=== PATIENT | male | born 1965 | race Caucasian/White ===

== ENCOUNTER 2018-07-01 14:37 | Inpatient (IN) ==
[2018-07-01 16:26] LABS: BASO# 0.03 X1000 (0.0-0.2); BASO% 0.2 % (0.0-0.8); HEMOGLOBIN 16.1 g/dL (14.0-18.0); IMM GRAN# 0.04 X1000 (0.0-0.04); IMM GRAN% 0.3 % (0.0-0.5); LYMPH% 7.8 % (20.5-51.1); MCHC 33.5 g/dL (33-37); MCV 89.6 FL (81-99); MONO% 8.6 % (1.7-9.3); MPV 10.4 FL (7.4-10.4); NEUT# 10.62 X1000 (1.4-6.5); NEUT% 83.1 % (42.2-75.2); PLT 277 X1000 (130-400); RBC 5.36 XMIL (4.7-6.1); WBC 12.79 X1000 (4.8-10.8)
[2018-07-01 16:26] LABS: URINE SOURCE CLEAN CATCH
[2018-07-01] MEDS ORDERED: ATIVAN ONE ×2 (16:30→16:33)
[2018-07-01] MEDS ORDERED: M.V.I.-12 10 ML, FOLIC ACID 1 MG, MAGNESIUM SULFATE 1 GM, THIAMINE 100 MG in NS 1,000 ML IV ONE (16:33)
[2018-07-01 16:34] LABS: BILIRUBIN URINE SMALL (NEGATIVE); BLOOD URINE MODERATE (NEGATIVE); COLOR ORANGE; GLUCOSE URINE 300 mg/dL (NEGATIVE); KETONE URINE 10 mg/dL (NEGATIVE); LEUKOCYTES URINE NEGATIVE (NEGATIVE); NITRITE URINE NEGATIVE (NEGATIVE); PROTEIN URINE 600 mg/dL (NEGATIVE); TURBIDITY URINE TURBID (CLEAR); UR EPITHELIAL CELLS <10 /HPF (<10); URINE BACTERIA NEGATIVE /HPF; URINE RBC <10 /HPF (<10); URINE WBC <10 /HPF (<10); UROBILINOGEN URINE 3 mg/dL (NORMAL)
[2018-07-01] MEDS ORDERED: ATIVAN IV ONE (16:34)
[2018-07-01] MEDS ORDERED: NS 1,000 ML IV ONE ×2 (16:36→20:03)
[2018-07-01 16:42] LABS: ALB/GLOB RATIO 1.5; ALBUMIN 4.8 g/dL (3.5-5.0); CALCIUM 10.4 mg/dL (8.8-10.2); CREATININE 1.6 mg/dL (0.7-1.2); POTASSIUM 4.7 mmol/L (3.5-5.1); TOTAL BILIRUBIN 1.28 mg/dL (0.20-1.00); TOTAL PROTEIN 7.9 g/dL (6.3-8.3)
[2018-07-01 17:01] LABS: MAGNESIUM 1.3 mg/dL (1.5-2.7)
[2018-07-01 17:19] LABS: UR AMPHETAMINES QUAL NONE DETECTED (NONE DETECT); UR BARBITUATES QUAL NONE DETECTED (NONE DETECT); UR BENZODIAZEPIN QUAL NONE DETECTED (NONE DETECT); UR CANNABINOIDS QUAL PRESUMPTIVE POSITIVE (NONE DETECT); UR COCAINE QUAL NONE DETECTED (NONE DETECT); UR METHADONE QUAL NONE DETECTED (NONE DETECT); UR OPIATES QUAL NONE DETECTED (NONE DETECT); UR OXYCODONE QUAL NONE DETECTED (NONE DETECT); UR PCP QUAL NONE DETECTED (NONE DETECT)
--- NOTE | 2018-07-01 18:32 | Diag Imaging Result Doc PS360 ---
EXAM: CT ABDOMEN/PELVIS W/O CONTRAST INDICATION: RUQ PAIN + RLQ POINT TENDERNESS W/ NEUTROPHILIC TECHNIQUE: This exam was performed using automated exposure control, adjustment of mA or kV according to patient size, and/or use of iterative reconstruction technique. COMPARISON: 03/04/2018 FINDINGS: There is moderate to severe hepatic steatosis. The gallbladder is hyperdense suggesting internal sludge. There is no pericholecystic inflammatory change. There is no biliary dilatation. The spleen, pancreas, and adrenal glands are unremarkable. The kidneys are unremarkable. The urinary bladder is partially distended and is unremarkable, otherwise. There is uncomplicated diverticulosis coli. The appendix is normal. The remainder of the GI tract is grossly unremarkable. The bony structures are intact. There is degenerative disc disease at L3-4 and L5-S1. IMPRESSION: 1.Hepatic steatosis. 2.Vague hyperdense sludge in the gallbladder lumen but no pericholecystic inflammatory change. 3.Other incidental/nonacute findings detailed above. Electronically signed by Evan Murry 07/01/2018 6:29 PM
[2018-07-01] MEDS ORDERED: MAGNESIUM SULFATE 2 GM/S.W.I. 2 GM/50 ML IVPB IV ONE (18:54)
--- NOTE | 2018-07-01 19:15 | PROVIDER DOCUMENTATION ---
This chart was entered by Marla Caraballo Scribe, acting as scribe for Tameka Sullivan MD. [id number] Abuse/Overdose - General Chief Complaint: Alcohol Withdrawal Stated Complaint: ALCOHOL WITHDRAWALS Time Seen by Provider: 07/01/18 16:24 Source: patient Allergies/Adverse Reactions: Allergies Allergy/AdvReac Type Severity Reaction Status Date / Time Penicillins Allergy Unknown Unknown Verified 07/01/18 15:50 Home Medications: Home Medication List Medication Instructions Recorded Confirmed Last Taken Type Clonidine [Catapres] 0.3 mg PO TID 06/07/13 03/04/18 03/03/18 History Citalopram [Celexa] 20 mg PO DAILY 04/13/15 09/14/15 09/13/15 History Lisinopril 20 mg PO DAILY 04/13/15 09/14/15 09/13/15 History Tamsulosin [Flomax] 0.4 mg PO QPM 04/13/15 09/14/15 09/13/15 History Folic Acid 1 mg PO DAILY #90 tablet 09/17/15 Unknown Rx Omeprazole [Prilosec] 40 mg PO DAILY #90 capsule. 09/17/15 Unknown Rx - History of Present Illness-Drug/Alcohol Nature of Presenting Problem: Pt is 52/M presenting to ED w/ ETOH withdrawals, he sts that for the last 3-5 yrs he has drank 1/2 gallon of vodka every other day. He wants to detox and become sober. He is diaphoretic and shaky in the waiting room. Pt is seeking help. This episode of drinking or use began:: other (pt has not had an alcoholic drink in 2 days.) Severity: reports: moderate Situational problems related to:: reports: N/A Psychiatric Complaints: reports: hallucinating Associated Symptoms: reports: diaphoresis, vomiting. denies: fever/chills Any injuries associated with this episode of intoxication?: No Similar Symptoms Previously?: No Recently seen or treated by another doctor?: No - Detox/Hospitalizations Previous detox/rehab admissions?: No Currently enrolled in a Methadone Program?: No Review of Systems - Adult - REVIEW OF SYSTEMS - ADULT Constitutional: reports: no symptoms reported. denies: chills, fever Eyes: reports: no symptoms reported Ears, Nose, Mouth & Throat: reports: no symptoms reported Cardiovascular: reports: no symptoms reported Respiratory: reports: no symptoms reported Gastrointestinal: reports: nausea, vomiting. denies: abdominal pain, diarrhea Genitourinary: reports: no symptoms reported Musculoskeletal: reports: no symptoms reported Integumentary: reports: no symptoms reported Neurological: reports: no symptoms reported. denies: dizziness/vertigo, headache/migraines Psychiatric: reports: no symptoms reported Endocrine: reports: no symptoms reported Hematologic/Lymphatic: reports: no symptoms reported Allergic/Immunologic: reports: no symptoms reported All Other Systems: Reviewed and Negative Past History - Adult - PAST MEDICAL HISTORY-ADULT Review of Records: reports: Old Records Reviewed, Nursing Assessment Review, Medications Reviewed, Social history reviewed & non-contributory. Major Childhood Illnesses: reports: denies history Cardiovascular: reports: HTN, hyperlipidemia Respiratory: reports: denies history Gastrointestinal: reports: denies history Obstetrical/Gynecological: reports: denies history Genitourinary: reports: denies history Musculoskeletal: reports: denies history Neurological: reports: denies history Endocrine/Immune: reports: denies history Other Conditions: reports: denies history - PRIOR SURGERIES/PROCEDURES Surgical/Procedure History: reports: tonsillectomy, orthopedic (extremity) - IMMUNIZATION STATUS Childhood Immunizations: See Nurse Assessment Flu Vaccine: See Nurse Assessment - FAMILY HISTORY Family History: reviewed, not pertinent - SOCIAL HISTORY Substance Use: alcohol, marijuana Alcohol Use Frequency: every day Number of drinks per typical drinking period:: 11-15 drinks Physical Exam-General - PHYSICAL EXAM-ADULT Initial Vital Signs Reviewed: Yes - CONSTITUTIONAL General Appearance: appears well, alert, moderate distress, other (pt is jaundice and diaphoretic) - EYES Eyes: PERRL/EOMI, pink conjunctivae - HEAD, EARS, NOSE, MOUTH & THROAT HENMT: normocephalic/atraumatic, moist mucous membranes, normal ENT inspection, TMs normal, pharynx normal - NECK Neck: non-tender, full range of motion, supple, normal inspection - RESPIRATORY Respiratory: lungs clear - CARDIOVASCULAR Cardiovascular: normal peripheral pulses, regular rate, rhythm, no edema, no gallop, no JVD, no murmur - GASTROINTESTINAL (ABDOMEN) Abdominal Exam: soft, other (RLQ tenderness upon exam). negative: tenderness - PSYCHIATRIC Psych/Mental Status: normal mood/affect, normal thought content, normal thought process, other (oriented 2.5) Progress - PLAN OF CARE/RESULTS Progress/Plan/Lab Results: Vital Signs - 8 hr 07/01/18 15:10 07/01/18 15:41 07/01/18 16:00 Temperature 99.0 F Pulse Rate 122 H 121 H Respiratory Rate 24 17 Blood Pressure 200/118 O2 Sat by Pulse Oximetry 96 97 96 07/01/18 16:02 07/01/18 16:03 07/01/18 16:30 Temperature Pulse Rate 115 H Respiratory Rate Blood Pressure 184/102 O2 Sat by Pulse Oximetry 96 95 97 07/01/18 16:32 07/01/18 16:33 07/01/18 17:00 Temperature Pulse Rate 132 H 129 H 113 H Respiratory Rate Blood Pressure 173/122 O2 Sat by Pulse Oximetry 95 96 93 L 07/01/18 17:03 07/01/18 17:04 07/01/18 17:30 Temperature Pulse Rate 108 H 120 H 111 H Respiratory Rate Blood Pressure 173/113 O2 Sat by Pulse Oximetry 88 L 94 L 95 07/01/18 17:33 07/01/18 17:34 07/01/18 18:00 Temperature Pulse Rate 111 H 108 H 105 H Respiratory Rate Blood Pressure 138/117 O2 Sat by Pulse Oximetry 92 L 96 07/01/18 18:30 07/01/18 18:33 Temperature Pulse Rate 113 H 113 H Respiratory Rate Blood Pressure 184/97 O2 Sat by Pulse Oximetry Laboratory Results - last 24 hr 07/01/18 07/01/18 07/01/18 15:40 15:40 16:10 WBC RBC Hgb Hct MCV MCH MCHC RDW Std Deviation Plt Count MPV Immature Gran % (Auto) Neut % (Auto) Lymph % (Auto) [place] % (Auto) Eos % (Auto) Baso % (Auto) Immature Gran # (Auto) Neut # (Auto) Lymph # (Auto) [place] # (Auto) Eos # (Auto) Baso # (Auto) Sodium Potassium Chloride Carbon Dioxide Anion Gap BUN Creatinine Estimated GFR/1.73 m2 BUN/Creatinine Ratio Glucose Calculated Osmolality Calcium Magnesium Total Bilirubin AST ALT Alkaline Phosphatase Ammonia Total Protein Albumin Globulin Albumin/Globulin Ratio Amylase Lipase Urine Source CLEAN CATCH Urine Color ORANGE Urine Turbidity TURBID Urine pH 6.0 Ur Specific [place] 1.030 Urine Protein 600 A Ur Glucose (Stick) 300 A Ur Ketones (Stick) 10 A Urine Blood MODERATE A Urine Nitrite NEGATIVE Urine Bilirubin SMALL A Urobilinogen Dipstick 3 A Urine Leukocytes NEGATIVE Urine WBC (Auto) <10 Urine RBC (Auto) <10 U Epithel Cells (Auto) <10 Urine Bacteria (Auto) NEGATIVE Urine Opiates Screen NONE DETECTED Ur Oxycodone Screen NONE DETECTED Ur Methadone, Qual NONE DETECTED Ur Barbiturates Screen NONE DETECTED Ur Phencyclidine Scrn NONE DETECTED Ur Amphetamines Screen NONE DETECTED U Benzodiazepines Scrn NONE DETECTED Urine Cocaine Screen NONE DETECTED U Cannabinoids Screen PRESUMPTIVE POSITIVE A Plasma/Serum Ethyl Alc 44 H 07/01/18 07/01/18 07/01/18 16:10 16:10 16:10 WBC 12.79 H RBC 5.36 Hgb 16.1 Hct 48.0 MCV 89.6 MCH 30.0 MCHC 33.5 RDW Std Deviation 14.0 Plt Count 277 MPV 10.4 Immature Gran % (Auto) 0.3 Neut % (Auto) 83.1 H Lymph % (Auto) 7.8 L [place] % (Auto) 8.6 Eos % (Auto) 0.0 Baso % (Auto) 0.2 Immature Gran # (Auto) 0.04 Neut # (Auto) 10.62 H Lymph # (Auto) 1.00 L [place] # (Auto) 1.10 H Eos # (Auto) 0.00 Baso # (Auto) 0.03 Sodium 140 Potassium 4.7 Chloride 95 L Carbon Dioxide 21 L Anion Gap 24 BUN 14 Creatinine 1.6 H Estimated GFR/1.73 m2 45 BUN/Creatinine Ratio 9 Glucose 121 H Calculated Osmolality 281 Calcium 10.4 H Magnesium 1.3 L Total Bilirubin 1.28 H AST 196 H ALT 155 H Alkaline Phosphatase 93 Ammonia Total Protein 7.9 Albumin 4.8 Globulin 3.1 Albumin/Globulin Ratio 1.5 Amylase 71 Lipase 26 Urine Source Urine Color Urine Turbidity Urine pH Ur Specific [place] Urine Protein Ur Glucose (Stick) Ur Ketones (Stick) Urine Blood Urine Nitrite Urine Bilirubin Urobilinogen Dipstick Urine Leukocytes Urine WBC (Auto) Urine RBC (Auto) U Epithel Cells (Auto) Urine Bacteria (Auto) Urine Opiates Screen Ur Oxycodone Screen Ur Methadone, Qual Ur Barbiturates Screen Ur Phencyclidine Scrn Ur Amphetamines Screen U Benzodiazepines Scrn Urine Cocaine Screen U Cannabinoids Screen Plasma/Serum Ethyl Alc 07/01/18 17:07 WBC RBC Hgb Hct MCV MCH MCHC RDW Std Deviation Plt Count MPV Immature Gran % (Auto) Neut % (Auto) Lymph % (Auto) [place] % (Auto) Eos % (Auto) Baso % (Auto) Immature Gran # (Auto) Neut # (Auto) Lymph # (Auto) [place] # (Auto) Eos # (Auto) Baso # (Auto) Sodium Potassium Chloride Carbon Dioxide Anion Gap BUN Creatinine Estimated GFR/1.73 m2 BUN/Creatinine Ratio Glucose Calculated Osmolality Calcium Magnesium Total Bilirubin AST ALT Alkaline Phosphatase Ammonia 34 Total Protein Albumin Globulin Albumin/Globulin Ratio Amylase Lipase Urine Source Urine Color Urine Turbidity Urine pH Ur Specific [place] Urine Protein Ur Glucose (Stick) Ur Ketones (Stick) Urine Blood Urine Nitrite Urine Bilirubin Urobilinogen Dipstick Urine Leukocytes Urine WBC (Auto) Urine RBC (Auto) U Epithel Cells (Auto) Urine Bacteria (Auto) Urine Opiates Screen Ur Oxycodone Screen Ur Methadone, Qual Ur Barbiturates Screen Ur Phencyclidine Scrn Ur Amphetamines Screen U Benzodiazepines Scrn Urine Cocaine Screen U Cannabinoids Screen Plasma/Serum Ethyl Alc Orders Category Date Time Status CT ABDOMEN/PELVIS W/O CONTRAST [CT] Stat Exams 07/01/18 16:37 Completed ALCOHOL BLOOD Stat Lab 07/01/18 16:10 Completed AMMONIA [CHEM] Stat Lab 07/01/18 17:07 Completed AMYLASE [CHEM] Stat Lab 07/01/18 16:10 Completed CBC WITH ELECTRONIC DIFF [HEME] Stat Lab 07/01/18 16:10 Completed COMPREHENSIVE METABOLIC PANEL [CHEM] Stat Lab 07/01/18 16:10 Completed LIPASE [CHEM] Stat Lab 07/01/18 16:10 Completed MAGNESIUM [CHEM] Stat Lab 07/01/18 16:10 Completed URINALYSIS W/POSS RFLX CULT [URINALYSIS] Stat Lab 07/01/18 15:40 Completed URINE DRUG SCREEN Stat Lab 07/01/18 15:40 Completed 0.9% Sodium Chloride Inj [Ns] 1,000 ml Med 07/01/18 19:00 Active IV 125 mls/hr 0.9% Sodium Chloride Inj [Ns] 1,000 ml Med 07/01/18 16:36 Discontinued IV 999 mls/hr Lorazepam [Ativan] Med 07/01/18 18:55 Active 2 mg IV Q2H PRN PRN Lorazepam [Ativan] Med 07/01/18 16:30 Discontinued 4 mg .ROUTE .STK-MED ONE Lorazepam [Ativan] Med 07/01/18 16:33 Discontinued 4 mg .ROUTE .STK-MED ONE Lorazepam [Ativan] Med 07/01/18 16:34 Discontinued 4 mg IV NOW ONE Magnesium Sulfate 2 gm/S.w.i. [Magnesium Sulfate 2 gm/S Med 07/01/18 18:54 Active .w.i] 2 gm in 50 ml IV NOW Mvi [M.v.i.-12] 10 ml Med 07/01/18 16:33 Discontinued Folic Acid 1 mg Magnesium Sulfate 1 gm Thiamine 100 mg 0.9% Sodium Chloride Inj [Ns] 1,000 ml IV NOW EKG [EKG] Stat Ther 07/01/18 16:34 Ordered Result Diagrams: 07/01/18 16:10 07/01/18 16:10 - REASSESSMENT Reassessment #1 Time Reassessed: 17:30 Status: other (PATIENT STATES HE WANTS TO STOP DRINKING AND WANTS ASSISTATNCE. HYPOMAGNESEMIA. JOSE DE JESUS FROM BASELINE. PENDING CT IMAGE TO RETURN BEFORE CONSULTING HOSPITALIST.) Reassessment #2 Time Reassessed: 18:40 Status: other (CT SCAN UNREMARKABLE. WILL CALL HOSPITALIST FOR THIS PATIENT WITH JOSE DE JESUS AND HYPOMAG WHO IS REQUESTING HELP FOR ALCOHOL WITH DRAWAL.) - CT/MRI 1 CT Study: Abdomen ([facility] [address] [facility], [address], [place] [address] Department of Imaging Patient: KENNETH HOPPER Date: 07/01/18#: [id number] : 1965ADM Status: REG [facility]#: [id number] Age/Sex: 52/MRoom/Bed: Loc: ED Ordering Physician: Tameka Sullivan MD Family Physician: Elvis Munson MD Reason for Procedure: RUQ PAIN + RLQ POINT TENDERNESS W/ NEUTROPHILIC ___ Signed EXAM: CT ABDOMEN/PELVIS W/O CONTRAST INDICATION: RUQ PAIN + RLQ POINT TENDERNESS W/ NEUTROPHILIC TECHNIQUE: This exam was performed using automated exposure control, adjustment of mA or kV according to patient size, and/or use of iterative reconstruction technique. COMPARISON: 03/04/2018 FINDINGS: There is moderate to severe hepatic steatosis. The gallbladder is hyperdense suggesting internal sludge. There is no pericholecystic inflammatory change. There is no biliary dilatation. The spleen, pancreas, and adrenal glands are unremarkable. The kidneys are unremarkable. The urinary bladder is partially distended and is unremarkable, otherwise. There is uncomplicated diver ticulosis coli. The appendix is normal. The remainder of the GI tract is grossly unremarkable. The bony structures are intact. There is degenerative disc disease at L3-4 and L5-S1. IMPRESSION: 1.Hepatic steatosis. 2.Vague hyperdense sludge in the gallbladder lumen but no pericholecystic inflammatory change. 3.Other incidental/nonacute findings detailed above. Electronically signed by Evan Murry 07/01/2018 6:29 PM 07/01/181828 Interpreting Physician: Evan Murry MD Dictated Date/Time: 07/01/181821 cc: Tameka Sullivan MD; Elvis Munson MD) Departure - Departure Date of Disposition Decision: 07/01/18 Time of Disposition Decision: 19:15 DIAGNOSIS: Alcohol withdrawal Disposition: ADMITTED INPATIENT 09 Certified Medical Emergency: Emergent Condition: Fair Referrals and Follow-Ups: Elvis Munson MD [Primary Care Provider] - - Critical Care Note This patient required my direct & personal management of CC.: No Attestation - Physician/ TOPHER Attestation Patient care was provided by Advanced Practice Provider:: No The physician spent face to face time with patient:: Yes Advanced Practice Provider documentation review:: Supervising physician onsite and consulted in the evaluation and care of this patient. The physician did have a face to face encounter with the patient. This chart was documented by the indicated scribe, (Marla Caraballo Scribe) and accurately reflects the services I performed and decisions made by me, Tameka Sullivan MD, as attested by the provider's signature.
[2018-07-01] MEDS: NS 1,000 ML IV SCH (19:28)
[2018-07-01] MEDS: ATIVAN IV PRN ×2 (19:30→21:30)
[2018-07-01] MEDS ORDERED: ZOFRAN IV PRN (19:59)
[2018-07-01] MEDS ORDERED: LOPRESSOR IV ONE (20:06)
[2018-07-01] MEDS ORDERED: CATAPRES PO SCH (21:00)
[2018-07-01] MEDS: CATAPRES PO SCH (21:02)
[2018-07-01] MEDS: LIORESAL PO SCH (21:04)
[2018-07-01] MEDS ORDERED: SODIUM CHLORIDE 0.9% INJ ONE (21:33)
[2018-07-01] MEDS ORDERED: PROTONIX IV ONE (21:33)
[2018-07-01] MEDS ORDERED: APRESOLINE IV PRN (21:33)
[2018-07-01] MEDS: FLOMAX PO SCH (22:25)
[2018-07-02] MEDS: PHENOBARBITAL IV PRN ×3 (00:22→06:46)
[2018-07-02] MEDS: ATIVAN IV PRN ×4 (02:18→12:35)
[2018-07-02] MEDS: NS 1,000 ML IV SCH ×3 (02:20→18:54)
[2018-07-02 06:16] LABS: BASO# 0.03 X1000 (0.0-0.2); BASO% 0.4 % (0.0-0.8); EOS# 0.02 X1000 (0.0-0.7); EOS% 0.3 % (0.0-10.0); HEMATOCRIT 39.9 % (42.0-52.0); HEMOGLOBIN 13.1 g/dL (14.0-18.0); IMM GRAN# 0.03 X1000 (0.0-0.04); IMM GRAN% 0.4 % (0.0-0.5); LYMPH# 2.35 X1000 (1.2-3.4); LYMPH% 33.5 % (20.5-51.1); MCH 30.4 PG (27-31); MCHC 32.8 g/dL (33-37); MCV 92.6 FL (81-99); MONO# 0.86 X1000 (0.11-0.59); MONO% 12.3 % (1.7-9.3); MPV 10.4 FL (7.4-10.4); NEUT# 3.73 X1000 (1.4-6.5); NEUT% 53.1 % (42.2-75.2); PLT 160 X1000 (130-400); RBC 4.31 XMIL (4.7-6.1); RDW 14.2 % (11.5-14.5); WBC 7.02 X1000 (4.8-10.8)
[2018-07-02 06:50] LABS: CALCIUM 8.2 mg/dL (8.8-10.2); CREATININE 1.3 mg/dL (0.7-1.2); MAGNESIUM 2.1 mg/dL (1.5-2.7); POTASSIUM 4.3 mmol/L (3.5-5.1)
[2018-07-02] MEDS ORDERED: SODIUM PHOSPHATE 30 MMOL in NS 250 ML IV ONE (07:00)
--- NOTE | 2018-07-02 07:42 | HISTORY AND PHYSICAL ---
CHIEF COMPLAINT: Alcohol withdrawal. HISTORY OF PRESENT ILLNESS: This is a 52-year-old male who states that he has been drinking half a gallon of vodka for the last three to five years. He has other past medical history that includes chronic alcohol abuse, hypertension, alcoholic hepatitis, and GI bleed. He states that he stopped drinking two days ago, however, his blood alcohol level is still 44. He is also positive for cannabis. He was visibly diaphoretic and with a resting tremor. He also has the complaint of hallucinations, both auditory and visual, nausea and vomiting. He denies fever and chills. He will be admitted to the ICU for further evaluation and treatment. PAST MEDICAL HISTORY: See HPI. PREVIOUS SURGICAL HISTORY: Hand surgery x2. He also had a tonsillectomy. SOCIAL HISTORY: Apparently drinking half a gallon of vodka daily for three to five years. No tobacco or illicit drugs but his urinalysis was positive for cannabinoids. FAMILY HISTORY: Heart disease and lymphoma in first-degree relatives. ALLERGIES: Penicillin. HOME MEDICATIONS: Clonidine 0.3 mg p.o. t.i.d., lisinopril 20 mg p.o. daily, Celexa 20 mg p.o. daily, omeprazole 40 mg p.o. daily. REVIEW OF SYSTEMS: A 14-point review of systems was conducted with the patient and the pertinent positives are listed above in the HPI. All other systems reviewed and found to be negative. PHYSICAL EXAMINATION: VITAL SIGNS: Temperature 98.3, pulse 82, respirations 24, blood pressure 136/76, and oxygen saturation is 95% on room air. GENERAL: A 52-year-old male diaphoretic with a tremor, seems anxious. Alert and oriented x3. No acute distress. HEENT: The head is atraumatic and normocephalic. The pupils are equal, round, and reactive to light. Extraocular eye movement is intact. The sclerae are mildly jaundiced. The conjunctivae are pink. The oral mucosa is dry. NECK: Supple. No JVD. No thyromegaly. The trachea is midline. No cervical lymphadenopathy. CARDIAC: S1, S2 appreciated. No murmurs, gallops, or rubs. Slightly tachycardic. LUNGS: Clear to auscultation bilaterally. No rhonchi, wheezes, or rales. Symmetric rise and fall with respirations. ABDOMEN: Protuberant, soft, nondistended, and diffusely tender. The greatest area of tenderness was the right upper quadrant. No rebound tenderness. No guarding. Bowel sounds present in all 4 quadrants. Normoactive. No pulsatile masses. No organomegaly. EXTREMITIES: No cyanosis, clubbing or edema. 2+ pedal pulses bilaterally. SKIN: Warm, dry and intact. No acute lesions or rash. Mildly jaundiced. DIAGNOSTIC DATA: CT of the abdomen showed hepatic stenosis. LABORATORY DATA: White blood cell count 12.79. Hemoglobin 16.1. Hematocrit 48. Platelet count 277,000. Sodium 140. Potassium 4.7. Chloride 95. Carbon dioxide 21. BUN 14. Creatinine 1.6. Glucose 121. AST 196. ALT 155. Magnesium 1.3. Phosphorus 1.3. ASSESSMENT AND PLAN: 1. Alcohol withdrawal. We will place the patient on Ativan 2 mg intravenous q.2 h. to be rotated with phenobarbital 130 mg intravenously q.2 h. p.r.n. for four doses and thiamine 100 mg intravenously q.24 h. for three bags. We will use clonidine for blood pressure. Add hydralazine p.r.n. for systolic greater than 160, baclofen 10 mg p.o. b.i.d. for SHANDRA 2 inhibition. Continue intravenous hydration with normal saline at 125 mL an hour. 2. Fluid volume depletion. See above. 3. Acute kidney injury. See above. 4. Deranged electrolytes. Replete magnesium and phosphorus. Continue to monitor. 5. Alcoholic hepatitis. Aware. Further recommendations per the patient's clinical course. Dictated by INOCENTE Villafuerte for Turner Rubin MD I have performed a face to face diagnostic evaluation. Labs/ Xrays- reviewed. Exam- chest- clear, CV- regular. A/P- Alcohol withdrawal- Admit, Ativan prn, IV fluids (banana bag) Dr. Rubin cc: INOCENTE Villafuerte MD [facility]
[2018-07-02] MEDS: CATAPRES PO SCH (08:01)
[2018-07-02] MEDS: LIORESAL PO SCH ×2 (08:01→20:17)
[2018-07-02] MEDS: PROTONIX IV SCH (08:01)
[2018-07-02] MEDS: SODIUM CHLORIDE 0.9% INJ SCH (08:02)
[2018-07-02] MEDS: THIAMINE 100 MG in NS 50 ML IV SCH (08:05)
--- NOTE | 2018-07-02 08:09 | EKG Report ---
Test Performed on : 07/01/2018 5:02:49 PM Test Reason : ALCO. WITHDR. Blood Pressure : / mmHG Vent. Rate : 108 BPM Atrial Rate : 108 BPM P-R Int : 144 ms QRS Dur : 086 ms QT Int : 334 ms P-R-T Axes : 025 024 050 degrees QTc Int : 447 ms Sinus tachycardia. Otherwise normal ECG When compared with ECG of 04-MAR-2018 16:18, No significant change was found Unconfirmed Result
[2018-07-02] MEDS ORDERED: FOLIC ACID PO SCH (09:00)
--- NOTE | 2018-07-02 15:17 | PROGRESS NOTE ---
DATE: 07/02/2018 SUBJECTIVE: The patient is resting in bed. He is currently having tremors. The patient is a chronic alcoholic, and has been drinking alcohol for the last 20 years. Consumes a large amount on a regular basis. OBJECTIVE: Vital Signs: Temperature is 99 degrees, pulse 68, respirations 19, blood pressure 149/91, oxygen saturation is 94%. HEENT: Atraumatic, normocephalic. Cardiovascular: S1, S2. Respiratory: Evidence of good air entry bilaterally. Abdomen: Soft, nontender. No masses felt. Extremities: No evidence of significant edema. Central Nervous System: The patient is awake and tremulous. LABORATORY DATA: WBC is 7.02, hematocrit is 39.9, with a platelet count of 160,000. Sodium is 132, potassium 4.3, chloride is 101, bicarb 23, BUN is 14, creatinine is 1.3. AST is 196, ALT is 155. UA shows a large amount of protein as well as glucose, and also ketones, along with a moderate amount of blood. Urine drug screen positive for cannabinoids. Plasma alcohol level is 44. ASSESSMENT AND PLAN: 1. Alcohol withdrawal. Maintain the patient on delirium tremens prophylaxis. The patient will be placed on benzodiazepines. Will also maintain him on thiamine, folic acid, and multivitamin. Replace magnesium and phosphorus level as necessary. The patient will remain in the intensive care unit for now. 2. Acute kidney injury, improved with intravenous hydration. 3. Hypomagnesemia/hypophosphatemia. Replace electrolytes as needed. 4. Abnormal liver function tests, most likely secondary to alcoholic liver disease. Follow up on hepatic function test. Check ammonia level. Check hepatitis panel as well as abdominal ultrasound. 5. Abnormal urinalysis showing protein, glucose, and also ketones with blood. Repeat urinalysis. 6. History of substance abuse. Aware. The patient will need to abstain from substances, specifically cannabinoids. 7. Deep vein thrombosis prophylaxis. Sequential compression devices. 8. Gastrointestinal prophylaxis. Proton pump inhibitor. cc: Theodore Art MD
[2018-07-02] MEDS: LIBRIUM PO SCH ×2 (15:25→20:17)
[2018-07-02] MEDS: FLOMAX PO SCH (20:17)
[2018-07-03] MEDS: LIBRIUM PO SCH ×4 (02:46→20:17)
[2018-07-03] MEDS: NS 1,000 ML IV SCH (02:48)
[2018-07-03 04:55] LABS: BASO# 0.03 X1000 (0.0-0.2); BASO% 0.3 % (0.0-0.8); EOS# 0.06 X1000 (0.0-0.7); EOS% 0.7 % (0.0-10.0); HEMATOCRIT 40.6 % (42.0-52.0); HEMOGLOBIN 13.3 g/dL (14.0-18.0); IMM GRAN# 0.02 X1000 (0.0-0.04); IMM GRAN% 0.2 % (0.0-0.5); LYMPH# 2.19 X1000 (1.2-3.4); LYMPH% 24.2 % (20.5-51.1); MCH 30.2 PG (27-31); MCHC 32.8 g/dL (33-37); MCV 92.3 FL (81-99); MONO# 0.78 X1000 (0.11-0.59); MONO% 8.6 % (1.7-9.3); MPV 10.5 FL (7.4-10.4); NEUT# 5.96 X1000 (1.4-6.5); PLT 159 X1000 (130-400); RDW 13.6 % (11.5-14.5); WBC 9.04 X1000 (4.8-10.8)
[2018-07-03 05:30] LABS: MAGNESIUM 1.5 mg/dL (1.5-2.7); PHOSPHORUS 2.4 mg/dL (2.7-4.5)
[2018-07-03 05:33] LABS: AGAP 10; ALB/GLOB RATIO 1.4; ALBUMIN 3.3 g/dL (3.5-5.0); ALKALINE PHOSPHATASE 68 U/L (32-122); BUN 8 mg/dL (8-22); CALCIUM 7.9 mg/dL (8.8-10.2); CHLORIDE 104 mmol/L (98-107); COSMO 270; CREATININE 0.9 mg/dL (0.7-1.2); ESTIMATED GFR > 60; GLUCOSE 87 mg/dL (70-104); GOT 76 U/L (10-34); GPT 67 U/L (10-44); IRON SATURATION 37 %; POTASSIUM 3.8 mmol/L (3.5-5.1); SODIUM 136 mmol/L (136-145); TCO2 22 mmol/L (25-35); TIBC 254 ug/dL; TOTAL BILIRUBIN 1.03 mg/dL (0.20-1.00); TOTAL IRON 93 ug/dL (53-167); TOTAL PROTEIN 5.7 g/dL (6.3-8.3); UNBOUND IRON 161 ug/dL (112-346)
[2018-07-03 06:36] LABS: FERRITIN 1954 ng/mL (30-400)
[2018-07-03] MEDS ORDERED: MAGNESIUM SULFATE 2 GM/S.W.I. 2 GM/50 ML IVPB IV ONE (07:22)
[2018-07-03] MEDS: FOLIC ACID 1 MG in NS 50 ML IV SCH (08:03)
[2018-07-03] MEDS: SODIUM CHLORIDE 0.9% INJ SCH (08:40)
[2018-07-03] MEDS: ATIVAN IV PRN ×5 (08:41→23:05)
[2018-07-03] MEDS: THIAMINE 100 MG in NS 50 ML IV SCH (08:41)
[2018-07-03] MEDS: FLINTSTONES COMPLETE PO SCH (08:41)
[2018-07-03] MEDS: PROTONIX IV SCH (08:41)
[2018-07-03] MEDS: LIORESAL PO SCH ×2 (08:41→20:17)
[2018-07-03] MEDS: LABETALOL IV PRN ×2 (08:46→19:45)
--- NOTE | 2018-07-03 11:11 | PROGRESS NOTE ---
DATE: 07/03/2018 OVERNIGHT: No acute events. SUBJECTIVE: He is feeling better than when he came in. He denies any new complaints. He denies any hallucinations. He continues to have tremors. He denies any nausea, vomiting, abdominal pain, or headache. OBJECTIVE: Vital Signs: Temperature 98.2 degrees, pulse 71, respiratory rate 20, blood pressure 148/94, saturating 92% on 2 L nasal cannula. General: Does not appear in any acute distress. Mouth: Oral cavity is moist. Lungs: Air entry bilaterally equal. No wheeze, rhonchi, or crackles. Cardiovascular: S1, S2 normal. No murmur, rub, or gallop. Abdomen: Soft, nontender. No lower extremity edema. He has bilateral upper extremity tremors at rest. He also has conjunctival congestion. Neurologic: He is alert, oriented x3. INPUT AND OUTPUT: Suggest he is making 1.5 L of urine in the last 24 hours. LABORATORIES: Suggestive of no leukocytosis. Normocytic anemia. Normal platelet count. Normal electrolytes, except magnesium of 1.5, which is being repleted. He has elevated ferritin. His transaminitis and hyperbilirubinemia are improving. He did have positive urine cannabinoids and elevated ethyl alcohol level and the urine had significant proteinuria and glucosuria, ketones. MICROBIOLOGY: No microbiological data. IMAGING: Abdomen and pelvis CT on admission had hepatic steatosis and gallbladder sludge without any other acute abdominal pathology. EKG had sinus tachycardia. ASSESSMENT AND PLAN: 1. Acute alcohol withdrawal without clinical features of delirium tremens at the moment. The patient's last alcohol drink was around June 29. Continue him on p.o. chlordiazepoxide and p.r.n. lorazepam. Continue folic acid, multivitamin and thiamine. 2. Acute kidney injury on presentation, likely because of nausea, vomiting, poor p.o. intake, now resolved after intravenous fluid resuscitation. 3. Hypomagnesemia, hypophosphatemia, improving. I will replete as necessary. 4. Transaminitis and hyperbilirubinemia in the setting of alcoholic liver disease. Hepatitis panel and antinuclear antibody are in laboratory. He does have ultrasound of abdomen ordered which I will discontinue if not already performed. Urinalysis with proteinuria, glucosuria, ketonuria. Repeat urine has not been performed. However, his kidney function has recovered, so I will hold off on further investigations. 5. Polysubstance abuse, including alcohol and cannabinoids. The patient was counseled against use of these substances. All of his questions have been answered. 6. Deep venous thrombosis prophylaxis, sequential compression device. I will add low-molecular weight heparin. DISPOSITION: Patient remains inside ICU. TIME SPENT: More than 30 minutes of critical care time was spent in taking care of this patient. He currently does have alcohol withdrawal symptoms and needs ICU care. I tried to reach out to patient's immediate relative, the information of which the patient provided me. However, she did not fruit or nut picker and I left a voice message for her. cc: Kamron Guy MD
[2018-07-03] MEDS: LOVENOX SUBQ SCH (11:16)
[2018-07-03] MEDS: FLOMAX PO SCH (20:17)
[2018-07-03] MEDS ORDERED: CATAPRES PO ONE (20:48)
[2018-07-03] MEDS ORDERED: PHENOBARBITAL IV ONE (20:49)
[2018-07-04] MEDS: ATIVAN IV PRN ×9 (00:41→20:12)
[2018-07-04] MEDS: APRESOLINE IV PRN ×3 (02:38→14:36)
[2018-07-04] MEDS: LIBRIUM PO SCH ×5 (02:45→20:12)
[2018-07-04] MEDS: PROTONIX IV SCH ×2 (07:39→09:35)
[2018-07-04] MEDS: LIORESAL PO SCH ×3 (07:39→20:10)
[2018-07-04] MEDS: SODIUM CHLORIDE 0.9% INJ SCH (07:39)
[2018-07-04] MEDS: FLINTSTONES COMPLETE PO SCH ×2 (07:40→09:34)
[2018-07-04] MEDS: FOLIC ACID 1 MG in NS 50 ML IV SCH (07:40)
--- NOTE | 2018-07-04 08:19 | PROGRESS NOTE ---
DATE: 07/04/2018 INTERVAL HISTORY: Overnight, patient was agitated and had received a one-time dose of 130 mg of phenobarbital. In the morning time, he was a little drowsy, however arousable. The patient does not appear in any acute distress. We discussed about his plan and answered all of his questions currently. VITALS: Detect temperature of 97.2 degrees, pulse of 62, respiratory rate 18, blood pressure 158/92, saturating 98% on room air. PHYSICAL EXAMINATION: General: He does not appear in any acute distress. HEENT: He does have bilateral conjunctival injection. Oral cavity is moist. Lungs: Air entry bilaterally equal. No wheeze, rhonchi or crackles. Cardiovascular: S1, S2 normal. No murmur, rub, or gallop. Abdomen: Soft, nontender. Extremities: No lower extremity edema. Bilateral upper extremity tremors at rest. Neurologic: He is otherwise alert, oriented x3. Input and output suggests negative 900 and positive 4 L yesterday. Since admission, he is positive 4 L. LABS: No CBC or BMP today. MICROBIOLOGY: No new microbiological data. IMAGING: No new imaging. ASSESSMENT AND PLAN: 1. Acute alcohol withdrawal without delirium tremens at the moment. The patient's last alcohol drink was around June 29. He is persistently appears tremulous and has slowed responses. He says that he has had tremors since childhood. Continue oral chlordiazepoxide, as-needed lorazepam, folic acid ,multivitamin and thiamine. I will increase chlordiazepoxide dose if required during day. 2. Acute kidney injury on presentation because of nausea, vomiting, poor oral intake, which has now resolved; his hypomagnesemia, hypophosphatemia has been improving. I will follow up with his repeat electrolytes tomorrow. 3. Transaminitis and hyperbilirubinemia in the setting of acute alcoholic liver disease. His hepatitis panel and antinuclear antibody are in lab, and follow up with liver function test and these labs in future. These are likely in the setting of his alcohol use disorder. 4. His glucosuria, ketonuria on presentation, along with proteinuria, was likely in the setting of acute kidney injury, alcoholic ketoacidosis on presentation. Currently, his acute kidney injury has resolved. 5. Polysubstance abuse including alcohol and cannabinoids. The patient was counseled against use of these substances. 6. Deep vein thrombosis prophylaxis. Low-molecular weight heparin. DISPOSITION: The patient remains inside the ICU. I called patient's significan other, however, she did not picker feeder and I haven't been able to connect with her. TIME SPENT: More than 30 minutes of critical care time was spent in taking care of this patient. I reached out to patient's significant other on the phone. However, she did not picker feeder, and I have left a voice message to call us back. cc: Kamron Guy MD MTDD
[2018-07-04] MEDS: THIAMINE 100 MG in NS 50 ML IV SCH (09:35)
[2018-07-04 10:16] LABS: ALB/GLOB RATIO 1.4; ALBUMIN 3.3 g/dL (3.5-5.0); DIRECT BILIRUBIN 0.4 mg/dL (0.00-0.20); TOTAL BILIRUBIN 0.81 mg/dL (0.20-1.00); TOTAL PROTEIN 5.7 g/dL (6.3-8.3)
[2018-07-04] MEDS: LOVENOX SUBQ SCH (11:11)
[2018-07-04 13:21] LABS: HEPATITIS PROFILE ACUTE SEE COMMENTS
[2018-07-04] MEDS: FLOMAX PO SCH (20:10)
[2018-07-04] MEDS ORDERED: CATAPRES PO SCH (21:00)
[2018-07-05] MEDS: ATIVAN IV PRN (00:15)
[2018-07-05] MEDS: LIBRIUM PO SCH ×5 (01:52→21:29)
[2018-07-05] MEDS: CATAPRES PO SCH ×4 (02:21→16:39)
[2018-07-05] MEDS: FLINTSTONES COMPLETE PO SCH (08:03)
[2018-07-05] MEDS: PROTONIX IV SCH (08:03)
[2018-07-05] MEDS: FOLIC ACID 1 MG in NS 50 ML IV SCH (08:03)
[2018-07-05] MEDS: LIORESAL PO SCH ×2 (08:04→21:28)
[2018-07-05] MEDS: CELEXA PO SCH (08:04)
[2018-07-05 08:08] LABS: BASO# 0.02 X1000 (0.0-0.2); BASO% 0.3 % (0.0-0.8); EOS# 0.18 X1000 (0.0-0.7); EOS% 2.4 % (0.0-10.0); HEMATOCRIT 38.6 % (42.0-52.0); HEMOGLOBIN 12.6 g/dL (14.0-18.0); LYMPH# 2.01 X1000 (1.2-3.4); LYMPH% 26.8 % (20.5-51.1); MCH 30.6 PG (27-31); MCHC 32.6 g/dL (33-37); MCV 93.7 FL (81-99); MONO# 0.82 X1000 (0.11-0.59); MONO% 10.9 % (1.7-9.3); MPV 11.1 FL (7.4-10.4); NEUT# 4.46 X1000 (1.4-6.5); NEUT% 59.6 % (42.2-75.2); PLT 155 X1000 (130-400); RBC 4.12 XMIL (4.7-6.1); RDW 14.2 % (11.5-14.5); WBC 7.49 X1000 (4.8-10.8)
[2018-07-05 08:31] LABS: AGAP 12; BUN 6 mg/dL (8-22); CALCIUM 8.4 mg/dL (8.8-10.2); CHLORIDE 103 mmol/L (98-107); COSMO 275; CREATININE 0.9 mg/dL (0.7-1.2); ESTIMATED GFR > 60; GLUCOSE 93 mg/dL (70-104); MAGNESIUM 1.6 mg/dL (1.5-2.7); PHOSPHORUS 3.8 mg/dL (2.7-4.5); POTASSIUM 3.5 mmol/L (3.5-5.1); SODIUM 139 mmol/L (136-145); TCO2 24 mmol/L (25-35)
[2018-07-05] MEDS: KLOR-CON PO SCH ×2 (10:56→14:41)
[2018-07-05] MEDS: LOVENOX SUBQ SCH (10:56)
--- NOTE | 2018-07-05 11:14 | PROGRESS NOTE ---
DATE: 07/05/2018 INTERVAL HISTORY: Patient was transferred to [facility] overnight. The patient was a little confused after receiving intravenous lorazepam, and he was found sitting on the floor and he has peed. He was redirected, reoriented, and was put back on his bed, and he was okay after that. In the morning time, he is feeling anxious. He again tells me that he has had tremors since childhood, and he has not been receiving any treatment for his tremors. He denies any chest pain or shortness of breath. OBJECTIVE: Vital Signs: Currently, temperature of 97.4 degrees, pulse of 64, respiratory rate 16, blood pressure 160/99, and saturating 99% on room air. General: On physical examination, appears obese not in any acute distress. He has bilateral conjunctival injection. Oral cavity is moist. Lungs: Air entry bilaterally equal. No wheezing, rhonchi or crackles. Heart: S1, S2 normal. No murmur, rub, or gallop. Abdomen: Soft, nontender. Extremities: No lower extremity edema. He has bilateral upper extremity tremors at rest that is also involving his face and head to some extent. Neurologic: He is alert and oriented x3 otherwise, and answers simple questions. Denies any complaints. LABORATORY: Labs are suggestive of normocytic anemia, normal platelet count, normal electrolytes except slightly low potassium and magnesium, which I am repeating. Also, I will repeat his liver function test day after tomorrow. ASSESSMENT AND PLAN: 1. Acute alcohol withdrawal without delirium tremens. Last alcohol drink was 06/29. His persistent tremors are chronic. He has intermittent confusion. Continue current dose of chlordiazepoxide with intravenous lorazepam as needed. Continue folic acid, multivitamin and thiamine. 2. Transaminitis and hyperbilirubinemia in the setting of acute alcohol liver disease. His hepatitis panel and antinuclear antibodies are negative. I will follow up with liver function test in the future to see if he would need further intervention. This is likely in the setting of alcohol use. 3. Acute kidney injury because of nausea, vomiting, and poor oral intake leading to volume depletion on admission, now resolved. His glucosuria and ketonuria on presentation along with proteinuria was likely in the setting of alcohol induced ketoacidosis and poor p.o. intake in the setting of [facility]. Continue magnesium and potassium repletion, and follow up with electrolytes. 4. Polysubstance abuse including alcohol and cannabinoids. The patient was counseled against use of these substances. 5. DVT prophylaxis on low-molecular weight heparin. 6. Disposition: The patient will be monitored for CIC as he has intermittent confusion. Continue physical therapy. If he progresses well, I would anticipate discharge in the next 48 to 72 hours. Advance diet to heart healthy. Plan of care discussed with the patient. All of his questions have been answered. I could not reach out to his significant other yesterday. cc: Kamron Guy MD
[2018-07-05] MEDS: FLOMAX PO SCH (21:29)
[2018-07-06] MEDS: LIBRIUM PO SCH ×4 (00:49→20:36)
[2018-07-06] MEDS: CATAPRES PO SCH ×4 (00:49→23:41)
[2018-07-06] MEDS: LIORESAL PO SCH ×2 (08:37→20:35)
[2018-07-06] MEDS: VITAMIN B-1 PO SCH (08:38)
[2018-07-06] MEDS: FOLIC ACID PO SCH (08:38)
[2018-07-06] MEDS: CELEXA PO SCH (08:38)
[2018-07-06] MEDS: PRILOSEC PO SCH (08:38)
[2018-07-06] MEDS: FLINTSTONES COMPLETE PO SCH (08:38)
[2018-07-06] MEDS: LOVENOX SUBQ SCH (11:37)
[2018-07-06] MEDS: PRINIVIL PO SCH (11:37)
[2018-07-06] MEDS: MIRALAX PO SCH (11:38)
--- NOTE | 2018-07-06 12:32 | PROGRESS NOTE ---
DATE: 07/06/2018 INTERVAL HISTORY: No acute events overnight. He was hypertensive for which I have increased his clonidine dose and added lisinopril. I have also decreased his Librium because he has been tolerating it well so far. SUBJECTIVE: The patient denies any chest pain or shortness of breath. He had a bowel movement yesterday. He does not have any other alcohol withdrawal related symptoms. Denies nausea and vomiting. VITALS: Temperature of 98 degrees, pulse 67, respiratory rate 18, blood pressure 149/85, saturating 97% on room air. PHYSICAL EXAMINATION: General: He appears obese, not in any acute distress. HEENT: Oral cavity is moist. No pallor, cyanosis, clubbing, or icterus. He persistently has mild bilateral conjunctival injection. Respiratory: Air entry bilaterally equal. No wheezing, rhonchi or crackles. Cardiac: S1, S2 normal. No murmur or gallop. Abdomen: Soft, nontender. Extremities: No lower extremity edema. Neurologic: He has bilateral upper extremity tremors at rest, which occasionally involves his face, which has been present since childhood. He is alert and oriented x3. He has tremors on outstretched hand, which he states is a chronic problem for him. LABS: Labs are suggestive of no leukocytosis, normocytic anemia, normal platelet count, normal electrolytes except slightly low potassium and magnesium. ASSESSMENT AND PLAN: 1. Acute alcohol withdrawal, without delirium tremens. Last alcohol drink was 06/29/2018. His persistent tremors are chronic, which were present since childhood. His intermittent confusion has resolved. Continue chlordiazepoxide and start tapering. Continue intravenous lorazepam as needed. Continue folic acid, multivitamin, and thiamine. 2. Transaminitis and hyperbilirubinemia in the setting of acute alcoholic liver disease. They are stable. I will follow up with those results in the future. No need of acute intervention at the moment. 3. Acute kidney injury because of nausea, vomiting, poor p.o. intake, leading to volume depletion on admission, now resolved. His glucosuria and ketonuria on presentation, along with proteinuria was likely in the setting of alcohol-induced ketoacidosis and acute kidney injury. 4. Polysubstance abuse including alcohol and cannabinoids. The patient was counseled against the use of these substances. He agreed and understood it. 5. Deep venous thrombosis prophylaxis. Low-molecular weight heparin. 6. Disposition. The patient will be transferred out of [facility] to routine medical floor. 7. Essential hypertension. Continue clonidine at his home dose, which I increased today, and add back his home lisinopril. 8. Social work, rehab consult has been placed for possible rehab discharge, which I anticipate early next week. cc: Kamron Guy MD
[2018-07-06] MEDS: FLOMAX PO SCH (20:35)
[2018-07-07 06:44] LABS: ALBUMIN 3.2 g/dL (3.5-5.0); DIRECT BILIRUBIN 0.2 mg/dL (0.00-0.20); TOTAL BILIRUBIN 0.36 mg/dL (0.20-1.00); TOTAL PROTEIN 6.3 g/dL (6.3-8.3)
[2018-07-07 07:33] LABS: BASO# 0.02 X1000 (0.0-0.2); BASO% 0.2 % (0.0-0.8); EOS# 0.24 X1000 (0.0-0.7); EOS% 2.7 % (0.0-10.0); HEMATOCRIT 39.8 % (42.0-52.0); HEMOGLOBIN 12.8 g/dL (14.0-18.0); IMM GRAN# 0.04 X1000 (0.0-0.04); IMM GRAN% 0.5 % (0.0-0.5); LYMPH# 2.08 X1000 (1.2-3.4); LYMPH% 23.6 % (20.5-51.1); MCH 30.3 PG (27-31); MCHC 32.2 g/dL (33-37); MCV 94.3 FL (81-99); MONO# 1.05 X1000 (0.11-0.59); MONO% 11.9 % (1.7-9.3); MPV 11.9 FL (7.4-10.4); NEUT% 61.1 % (42.2-75.2); PLT 171 X1000 (130-400); RBC 4.22 XMIL (4.7-6.1); RDW 14.2 % (11.5-14.5); WBC 8.83 X1000 (4.8-10.8)
[2018-07-07 07:59] LABS: AGAP 12; BUN 9 mg/dL (8-22); CALCIUM 8.9 mg/dL (8.8-10.2); CHLORIDE 102 mmol/L (98-107); COSMO 274; CREATININE 0.8 mg/dL (0.7-1.2); ESTIMATED GFR > 60; GLUCOSE 100 mg/dL (70-104); MAGNESIUM 1.6 mg/dL (1.5-2.7); PHOSPHORUS 4.2 mg/dL (2.7-4.5); POTASSIUM 4.1 mmol/L (3.5-5.1); SODIUM 138 mmol/L (136-145); TCO2 24 mmol/L (25-35)
[2018-07-07] MEDS: CELEXA PO SCH (09:04)
[2018-07-07] MEDS: FLINTSTONES COMPLETE PO SCH (09:04)
[2018-07-07] MEDS: VITAMIN B-1 PO SCH (09:04)
[2018-07-07] MEDS: LIBRIUM PO SCH ×2 (09:05→20:52)
[2018-07-07] MEDS: MIRALAX PO SCH (09:05)
[2018-07-07] MEDS: FOLIC ACID PO SCH (09:05)
[2018-07-07] MEDS: PRILOSEC PO SCH (09:05)
[2018-07-07] MEDS: CATAPRES PO SCH ×2 (09:05→17:11)
[2018-07-07] MEDS: LIORESAL PO SCH ×2 (09:05→20:52)
[2018-07-07] MEDS: PRINIVIL PO SCH (09:05)
--- NOTE | 2018-07-07 11:20 | PROGRESS NOTE ---
DATE: 07/07/2018 INTERVAL HISTORY: No acute events overnight. SUBJECTIVE: In the morning time, patient appears pleasant. He denies any complaints. He states he was able to come out of bed and go to the bathroom without any disturbance and physical therapy has been working with him. He still, however, feels a little weak. VITAL SIGNS: Temperature 98.1 degrees, pulse 63, respiratory rate 18, blood pressure 113/60, saturating 97% on room air. PHYSICAL EXAMINATION: General: Does not appear in any acute distress. Oral cavity is moist. No pallor, cyanosis, clubbing, or icterus. Mild conjunctival injection. Air entry bilaterally equal. No wheeze, rhonchi, crackles. S1, S2 normal. No murmur or gallop. Abdomen is obese, soft, nontender. Lower Extremities: He does not have any edema. He is alert and oriented x3. He does have bilateral upper extremity tremors on intention. He is alert and oriented x3. LABS: CBC and BMP stable. He does not have any liver function test abnormalities. Blood culture results suggest it is no growth. ASSESSMENT AND PLAN: 1. Acute alcohol withdrawal without delirium tremens. Last alcohol drink was June 29. Continue current dose of chlordiazepoxide. I will start further taper. I will introduce further taper possibly tomorrow. Continue intravenous lorazepam as needed, folic acid, multivitamin, and thiamine. His persistent tremors are chronic, which have been present since childhood. 2. Acute kidney injury because of nausea, vomiting, poor oral intake leading to volume depletion on admission, now resolved. On admission, he did have glucosuria, ketonuria, along with proteinuria in the setting of alcohol induced ketoacidosis and acute kidney injury. 3. Alcohol induced transaminitis with AST > ALT. Stable. He should get a repeat liver function test done as an outpatient as appropriate. 3. Polysubstance abuse with alcohol and cannabinoids. The patient was counseled against using these substances and he understood it. 4. Deep venous thrombosis prophylaxis, enoxaparin. 5. Disposition. The patient will be transferred out of [facility] to routine medical floor. 6. Essential hypertension. Continue home clonidine and lisinopril. His blood pressure is better controlled now. 7. Disposition. Continue physical therapy. The patient might be a candidate of rehab versus home with home physical therapy. I will follow up with physical therapy recommendation. Plan of care discussed with the patient. All of his questions have been answered. cc: Kamron Guy MD MTDD
[2018-07-07] MEDS: LOVENOX SUBQ SCH (13:09)
[2018-07-07] MEDS: FLOMAX PO SCH (20:52)
[2018-07-08] MEDS: CATAPRES PO SCH ×2 (00:06→08:47)
[2018-07-08] MEDS: ATIVAN IV PRN ×2 (00:08→13:39)
[2018-07-08] MEDS: MIRALAX PO SCH (08:46)
[2018-07-08] MEDS: FLINTSTONES COMPLETE PO SCH (08:46)
[2018-07-08] MEDS: LIORESAL PO SCH (08:47)
[2018-07-08] MEDS: LIBRIUM PO SCH (08:47)
[2018-07-08] MEDS: PRILOSEC PO SCH (08:47)
[2018-07-08] MEDS: FOLIC ACID PO SCH (08:48)
[2018-07-08] MEDS: CELEXA PO SCH (08:48)
[2018-07-08] MEDS: PRINIVIL PO SCH (08:48)
[2018-07-08] MEDS: VITAMIN B-1 PO SCH (08:48)
[2018-07-08] MEDS ORDERED: FLINTSTONES COMPLETE PO SCH (09:00)
[2018-07-08] MEDS: LOVENOX SUBQ SCH (13:40)
[2018-07-08 17:04] VITALS: BP 176/87
--- NOTE | 2018-07-08 17:49 | DISCHARGE SUMMARY ---
ADMISSION DATE: 07/01/2018 DISCHARGE DATE: DISCHARGE DIAGNOSES: 1. Acute alcohol withdrawal without delirium tremens. 2. Transaminitis in the setting of alcohol-induced liver injury and mild alcoholic hepatitis. 3. Acute kidney injury because of nausea/vomiting, poor p.o. intake at the time of admission. 4. Polysubstance abuse with alcohol and cannabinoids. 5. Essential hypertension. 6. Normocytic anemia. OTHER DIAGNOSES: 1. History of essential hypertension. 2. History of daily alcohol use. 3. History of alcoholic hallucinosis. 4. History of essential hypertension. CONSULTATION DURING HOSPITAL ADMISSION: None. HOSPITAL COURSE SUMMARY: Mr. Orellana is a 52-year-old man who has a history of drinking half a gallon of vodka for at least 3 to 5 years. He also had prior history of gastrointestinal bleed. He stopped drinking abruptly 2 days ago as he wanted to quit it, though on arrival, he did have alcohol level of 44. After stopping his alcohol drinking, he started experiencing withdrawal symptoms including diaphoresis, both auditory and visual hallucination, nausea/vomiting, and so he came to the emergency room. In the emergency room, he was found to have alcohol withdrawal symptoms. Though he was hemodynamically stable, he was admitted to ICU for monitoring of his alcohol withdrawal and alcohol hallucinosis. He was treated with p.o. chlordiazepoxide and intermittent intravenous lorazepam as needed and was monitored for withdrawal symptoms. His withdrawal symptoms started getting better on p.o. chlordiazepoxide, which we had started tapering, and he was transferred to step-down unit and later on routine medical floor. At the time of discharge, he was alert, oriented x3. He was able to participate in the physical therapy and has been eating without any nausea, vomiting, or abdominal pain, and it was appropriate to discharge him. He was also continued on thiamine and multivitamin. He was treated with his home antihypertensive medications to control his blood pressure. He was counseled about not using alcohol or cannabis in future, and he verbalized understanding. Acute kidney injury on presentation because of volume depletion had resolved at the time of discharge. VITAL SIGNS: At the time of discharge, temperature 98.3 degrees, pulse 55, respiratory rate 16, blood pressure 106/69, saturating 94% on room air. PHYSICAL EXAMINATION: He was alert and oriented x3, not in any acute distress. Oral cavity was moist. No pallor, cyanosis, clubbing or icterus. Air entry bilaterally equal. No wheeze, rhonchi, crackles. S1, S2 normal. No murmur, rub, gallop. Abdomen is soft, nontender. No lower extremity edema. He does have baseline tremors since childhood, which was not worse at the time of discharge. SIGNIFICANT LABORATORIES DURING HOSPITAL ADMISSION: At discharge, WBC count 8.8, hemoglobin 12.8, platelet 171,000. Electrolytes normal with potassium of 4.1. BUN of 9, creatinine of 0.8. His total bilirubin was 0.3, AST of 195, ALT of 98, alkaline phosphatase of 67. Stool occult blood test was negative. SIGNIFICANT IMAGING DURING HOSPITAL: Abdomen and pelvis CT performed for abdominal pain had hepatic steatosis for alcoholic fatty liver, gallbladder sludge without any acute abnormalities. DISCHARGE MEDICATION: Chlordiazepoxide 50 mg twice a day for 3 days and then 50 mg once a day for 6 days. Thiamine 100 mg daily, 30 tablets have been prescribed. Multivitamin 1 tablet daily. Clonidine 0.3 mg t.i.d. Lisinopril 20 mg daily. Citalopram 20 mg daily. Folic acid 1 mg daily. Omeprazole 40 mg daily. Tamsulosin 0.4 mg at nighttime. COORDINATION TIME: More than 30 minutes were spent in discharging this patient. All of his questions have been answered satisfactorily. cc: Kamron Guy MD
== END 2018-07-08 17:47 | disposition home or self-care (01) | DRG 897 ==
LOC: ED 14:37 → SUATTDRO 14:38 → ICU 14:38 → 3S 07-04 23:59 → 3N 07-07 14:01
PROVIDERS: ATTEND Internal Medicine
CPT/HCPCS: 74176; 80048; 80053; 80074; 80076; 80101; 80301; 80307; 80320; 80324; 80345; 80346; 80353; 80358; 80361; 80365; 81001; 82055; 82140; 82150; 82270; 82550; 82607; 82728; 82746; 83540; 83550; 83690; 83735; 83992; 84100; 84443; 85025; 86038; 86039; 93005; 96361; 96365; 96367; 96375; 97116; 97162; 97530; 99285; A9270; C9113; G0431; G0434; G0479; G0480; G6040; J0360; J1650; J2060; J2405; J2560; J3411; J3475; J7030; J7050; S0164